=== PATIENT | female | born 1965 | race Caucasian/White ===

== ENCOUNTER 2022-05-17 01:31 | Emergency (ER) | payer OTHER ==
[~2022-05-17] VITALS: Ht 152.4 cm; Wt 54.4 kg
[2022-05-17 01:40] VITALS: BP_SYST 113
--- NOTE | 2022-05-17 01:43 | NUR ---
PER PATIENT, PATIENT HAS HAD SEVERE HEADACHE SINCE 1000 WITH NAUSEA AND SENSITIVITY TO LIGHT. NO NEURO DEFICITS AT THIS TIME. PATIENT DOES NOT NORMALLY GET HEADACHES.
--- NOTE | 2022-05-17 01:46 | NUR ---
PATIENT BROUGHT TO BED 8 FOR EVAL, REPORT TO CARMEN MARIN.
--- NOTE | 2022-05-17 01:55 | NUR ---
ERMD AT BEDSIDE EVALUATING PATIENT
[2022-05-17] MEDS ORDERED: NACL 0.9% 1,000 ML IV ONE (02:15)
[2022-05-17] MEDS ORDERED: KETOROLAC TROMETHAMINE 30 MG VIAL IVP ONE ×2 (02:15→02:45)
[2022-05-17] MEDS ORDERED: ONDANSETRON HCL 4 MG/2 ML VIAL IVP ONE (02:15)
[2022-05-17] MEDS ORDERED: DIPHENHYDRAMINE INJ 50 MG/ML VIAL IVP ONE (02:15)
--- NOTE | 2022-05-17 03:08 | NUR ---
ERMD RE EVALUATING PATIENT
[2022-05-17] MEDS ORDERED: IBUP-1971 PO (03:44)
[2022-05-17] MEDS ORDERED: ONDA-8 TL (03:44)
[2022-05-17] MEDS ORDERED: LORazepam 2 MG/ML VIAL IVP ONE (03:45)
[2022-05-17] MEDS ORDERED: METH-634 PO (04:03)
[2022-05-17 04:10] VITALS: BP_SYST 125
--- NOTE | 2022-05-17 04:10 | NUR ---
Patient given written and verbal discharge instructions and verbalizes understanding. ER MD discussed with patient the results and treatment provided. Patient in stable condition. ID arm band removed. IV catheter removed intact and dressing applied, no active bleeding. Rx of MOTRIN & ZOFRAN given. Patient educated on pain management and to follow up with PMD. Pain Scale 0/10. Opportunity for questions provided and answered. Medication side effect fact sheet provided.
== END 2022-05-17 04:10 | disposition home or self-care (01) ==
LOC: SED 01:31
DX: G43.909 Migraine, unspecified, not intractable, without status migrainosus (principal); Z79.899 Other long term (current) drug therapy
CPT/HCPCS: 99284; 96374; 96375; 96361; J1200; J1885; J2060; J2405; J7030